=== PATIENT | female | born 2005 | race Hispanic/Latino ===

== ENCOUNTER 2024-11-28 15:11 | Emergency (ER) | payer BC ==
[2024-11-28] MEDS ORDERED: Ondansetron PF 4 MG/2 ML Vial ONE (16:29)
[2024-11-28] MEDS ORDERED: Dexamethasone 10 MG/ML VIAL ONE (16:29)
[2024-11-28] MEDS ORDERED: Ketorolac Tromethamine 30 MG (1 mL) VIAL ONE (16:30)
[2024-11-28 16:40] LABS: #Basophils 0.03 10x3/uL (0.0-0.2); #Eosinophils 0.16 10x3/uL (0.0-0.5); #Monocytes 0.53 10x3/uL (0.0-1.1); #Neutrophils 6.92 10x3/uL (1.5-8.4); %Basophils 0.3 % (0.0-2.0); %Eosinophils 1.8 % (0.0-6.0); %Lymphocytes 11.5 % (18.0-47.0); %Monocytes 6.1 % (0.0-10.0); %Neutrophils 80.1 % (40.0-75.0); Hematocrit 41.9 % (34.9-44.5); Hemoglobin 14.2 g/dL (12.0-15.5); Mean Corpuscular Hemoglobin 28.5 pg (27.0-33.0); Mean Corpuscular Volume 84.0 fL (81.6-98.3); Platelet Count 224 10x3/uL (150-450); Red Blood Cell (RBC) Count 4.99 10x6/uL (3.90-5.03); White Blood Cell (WBC) Count 8.66 10x3/uL (3.5-10.5)
[2024-11-28 16:52] LABS: BHCG - Serum Negative (NEGATIVE); Pregs Control Background? CLEAR/WHITE (CLR/WHITE); Pregs Control Bar Appear? YES (CONTROL BAR)
[2024-11-28 16:57] LABS: ALT (SGPT) 8 U/L (Less than 34); AST (SGOT) 17 U/L (11-34); Albumin 4.8 g/dL (3.1-4.5); Alkaline Phosphatase 52 U/L (40-100); Anion Gap 13 mmol/L (10-20); BUN (Urea Nitrogen) 10 mg/dL (7.0-18.7); Bilirubin, Total 0.2 mg/dL (0.3-1.2); Calc. Creatinine Clearance 0 mL/min (70-130); Calcium 9.8 mg/dL (7.8-10.44); Carbon Dioxide 24 mmol/L (22-29); Chloride 107 mmol/L (98-107); Globulin 3.5 g/dL (2.4-3.5); Glucose 89 mg/dL (70-105); Potassium 3.9 mmol/L (3.5-5.1); Sodium 140 mmol/L (136-145)
== END 2024-11-28 18:09 | disposition home or self-care (01) ==
LOC: CSHERS 15:11
DX: J02.9 Acute pharyngitis, unspecified (principal); R11.2 Nausea with vomiting, unspecified; R05.9 Cough, unspecified; R51.9 Headache, unspecified
CPT/HCPCS: 71045; 80053; 84703; 85025; 87081; 87428; 87430; J1100; J1885; J2405; J7620